=== PATIENT | female | born 1965 | race Caucasian/White ===

== ENCOUNTER 2017-03-07 09:21 | Day surgery (SDC) | payer OTHER ==
[~2017-03-07] VITALS: Ht 170.2 cm; Wt 118.0 kg
[~2017-03-07 09:21] MED LIST: MESTINON60 MG PO; TENORMIN50 MG PO
[2017-03-07] MEDS ORDERED: TOPROL XL100 MG PO (09:45)
[2017-03-07 11:17] LABS: EOSINOPHIL (%) 5.3 % (0-5); EOSINOPHIL COUNT 0.4 K/uL (0-0.3); HEMATOCRIT 41.1 % (36.0-46.0); IMMATURE GRANULOCYTE (%) 0.3 % (0.0-0.7); INSTRUMENT ABS NEUTROPHIL CT 3.7 K/uL; MCH 28.1 PG (29.0-34.0); MCHC 32.4 G/DL (30.0-36.0); MCV 86.9 FL (83-99); MEAN PLAT.VOLUME 10.7 uM^3 (9.5-12.4); MONOCYTE (%) 7.4 % (3-12); MONOCYTE COUNT 0.5 K/uL (0-0.8); NEUTROPHIL COUNT 3.7 K/uL (1.8-6.4); PLATELET COUNT 188 K/uL (156-360); RBC DIS.WIDTH-CV 13.2 % (11.8-14.6); RBC DIS.WIDTH-SD 42.2 % (39-53); RED BLOOD COUNT 4.73 M/uL (3.80-5.20); WHITE BLOOD COUNT 6.7 K/uL (4.1-10.2)
[2017-03-07 11:27] LABS: CHLORIDE 108 mEq/L (99-109); POTASSIUM 3.7 mEq/L (3.7-5.4); SODIUM 138 mEq/L (136-147)
[2017-03-07 11:29] LABS: GLUCOSE 94 mg/dL (70-99)
[2017-03-07 11:30] LABS: ANION GAP 9 MEQ/L (2-14)
[2017-03-07 11:31] LABS: TOTAL BILIRUBIN 0.3 mg/dL (0.0-1.0)
[2017-03-07 11:32] LABS: ALKALINE PHOSPHATASE 72 IU/L (3-129)
[2017-03-07 11:33] LABS: GFR ESTIMATE (CALCULATED) > 59 mL/min/
[2017-03-07 11:34] LABS: UREA NITROGEN (BUN) 12 mg/dL (9-23)
[2017-03-07 11:36] LABS: LIPASE 20 U/L (1.0-51.0)
[2017-03-07 11:47] LABS: ADD MIUA? YES; BILIRUBIN NEGATIVE; BLOOD NEGATIVE; COLOR YELLOW ((YELLOW)); GLUCOSE (STRIP) NEGATIVE; KETONES NEGATIVE; LEUKOCYTES TRACE; NITRITE NEGATIVE; PROTEIN (STRIP) NEGATIVE; SPECIFIC GRAVITY 1.016 (1.000-1.030); UROBILINOGEN 0.2 MG/DL (0.2-1.0)
[2017-03-07 11:54] LABS: BACTERIA RARE /HPF; EPITHELIAL CELLS RARE /HPF; MUCUS TRACE /LPF; RED BLOOD CELLS 20-30 /HPF (0-5); WHITE BLOOD CELLS 0-5 /HPF (0-5)
[2017-03-07] MEDS ORDERED: DAILY VALUE1 EACH PO (13:22)
[2017-03-07] MEDS ORDERED: VITAMIN D31000 UNIT PO (13:23)
[2017-03-07 19:15] VITALS: BP 142/67
[2017-03-07 19:50] VITALS: BP 138/66
[2017-03-07 23:20] VITALS: BP 115/58
[2017-03-08 04:05] VITALS: BP 96/52
[2017-03-08 06:36] LABS: HEMATOCRIT 36.7 % (36.0-46.0); MCH 28.4 PG (29.0-34.0); MCHC 31.6 G/DL (30.0-36.0); PLATELET COUNT 161 K/uL (156-360); RBC DIS.WIDTH-CV 13.3 % (11.8-14.6); RBC DIS.WIDTH-SD 43.9 % (39-53); RED BLOOD COUNT 4.08 M/uL (3.80-5.20)
[2017-03-08 07:08] LABS: ANION GAP 5 MEQ/L (2-14); CHLORIDE 109 MEQ/L (99-109); GFR ESTIMATE (CALCULATED) > 59 mL/min/; GLUCOSE 92 mg/dL (70-99); POTASSIUM 4.3 MEQ/L (3.7-5.4); SAMPLE HEMOLYSIS CHECK 0; SAMPLE ICTERIC CHECK 0; SAMPLE LIPEMIA CHECK 0; SODIUM 142 MEQ/L (136-147); UREA NITROGEN (BUN) 14 mg/dL (9-23)
[2017-03-08 07:25] VITALS: BP 119/67
[2017-03-08 12:00] VITALS: BP 125/60
[2017-03-08 12:55] VITALS: BP 125/60
== END 2017-03-08 15:42 | disposition home or self-care (01) ==
LOC: EME 09:21 → SDC 16:02 → 2SOUTH 17:40 → 2EAST 18:48
PROVIDERS: Emergency Medicine; Thoracic Surgery (Cardiothoracic Vascular Surgery)
PROC: 0DTJ0ZZ Resection of Appendix, Open Approach (ICD-10-PCS; principal; 2017-03-07)
DX: K35.80 Unspecified acute appendicitis (principal); G70.00 Myasthenia gravis without (acute) exacerbation; Z85.528 Personal history of other malignant neoplasm of kidney; Z90.710 Acquired absence of both cervix and uterus; F43.8 Other reactions to severe stress; F17.210 Nicotine dependence, cigarettes, uncomplicated; Z82.49 Family history of ischemic heart disease and other diseases of the circulatory system; Z80.3 Family history of malignant neoplasm of breast; Z83.3 Family history of diabetes mellitus; Z88.8 Allergy status to other drugs, medicaments and biological substances
CPT/HCPCS: 74177; 80048; 80053; 81003; 83690; 85025; 85027; 88304; 93005; 94799; 99281; 99284; G0378; J0131; J1100; J1335; J1885; J2250; J2274; J2405; J2765; J3010; J7030; J7120